=== PATIENT | male | born 1960 | race Caucasian/White ===

== ENCOUNTER 2017-05-07 15:11 | Emergency (ER) | payer OTHER ==
[~2017-05-07] VITALS: Ht 188 cm; Wt 113.4 kg
[2017-05-07 15:48] VITALS: BP 128/78
[2017-05-07] MEDS ORDERED: FLUORESCEIN OPHTH TEST STRIP. ONE (15:52)
[2017-05-07] MEDS ORDERED: TETRACAINE 0.5% OPHTH SOLUTION 4ML BOTTLE. ONE (15:53)
[2017-05-07] MEDS ORDERED: FLUORESCEIN OPHTH TEST STRIP. OS ONE (16:00)
[2017-05-07] MEDS ORDERED: TETRACAINE 0.5% OPHTH SOLUTION 4ML BOTTLE. OS ONE (16:00)
[2017-05-07] MEDS ORDERED: DIPHTH,PERTUSS(ACELL),TET TOX 0.5 ML DISP.SYRIN. VAX IM ONE (16:00)
--- NOTE | 2017-05-07 16:01 | PHYS DOC ---
Past Medical History Past Medical History: No Pertinent History Past Surgical History: Other Additional Past Surgical Histo: knee, shoulder Alcohol Use: Occasionally Drug Use: None Adult General Chief Complaint Chief Complaint: EYE PROBLEMS HPI HPI Patient is a 56 year old medical presents with left eye injury. 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 Patient denies any vision loss. Review of Systems Review of Systems Constitutional: Denies fever or chills [] Eyes: left eye injury Musculoskeletal: Denies back pain or joint pain [] Integument: Denies rash or skin lesions [] Neurologic: Denies headache, focal weakness or sensory changes [] Current Medications Current Medications Current Medications Medications (Trade) Dose Ordered Sig/Sybil Start Time Stop Time Status Last Admin Dose Admin Diphtheria/ Tetanus/Acell Pertussis (Boostrix) 0.5 ml ONCE ONCE 05/07/17 16:00 05/07/17 16:01 Fluorescein Sodium (Ful-Jaz) 1 strip STK-MED ONCE 05/07/17 15:52 05/07/17 15:53 DC Tetracaine HCl (Tetracaine) 40 drop STK-MED ONCE 05/07/17 15:53 05/07/17 15:54 DC Allergies Allergies Allergies Coded Allergies Type Severity Reaction Last Updated Verified codeine Allergy Unknown 05/07/17 Yes Physical Exam Physical Exam Constitutional: Well developed, well nourished, no acute distress, non-toxic appearance. [] HENT: Normocephalic, atraumatic, bilateral external ears normal, oropharynx moist, no oral exudates, nose normal. [] Eyes: PERRLA, EOMI, left medial subconjunctival hemorrhage with no drainage Skin: Warm, dry, no erythema, no rash. [] Back: No tenderness, no CVA tenderness. [] Extremities: No tenderness, no cyanosis, no clubbing, ROM intact, no edema. [] Neurologic: Alert and oriented X 3, normal motor function, normal sensory function, no focal deficits noted. [] Psychologic: Affect normal, judgement normal, mood normal. [] Current Patient Data Vital Signs Vital Signs Date Time Temp Pulse Resp B/P (MAP) Pulse Ox O2 Delivery O2 Flow Rate FiO2 05/07/17 15:48 98.7 87 16 95 Room Air 98.7 EKG EKG [] Radiology/Procedures Radiology/Procedures [] Course & Med Decision Making Course & Med Decision Making Pertinent Labs and Imaging studies reviewed. (See chart for details) Patient is in the ED with left eye injury. 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 He does have subconjunctival hemorrhage left medial eye. He was discharged with erythromycin eye ointment. Discharged with instructions to follow-up with the licensing specialist on Tuesday. Given tetanus in the ED. Discharged in stable condition. Dragon Disclaimer Dragon Disclaimer This electronic medical record was generated, in whole or in part, using a voice recognition dictation system. Departure Departure Impression: Primary Impression: Subconjunctival hemorrhage of left eye Disposition: HOME, SELF-CARE Condition: STABLE Referrals: NAI APPIAH MD (PCP) DHARMESH ROCHE MD Follow-up with the provided eye doctor by calling his office on Tuesday. Patient Instructions: Subconjunctival Hemorrhage-Brief Additional Instructions: You were seen with left conjunctiva hemorrhage from an eye injury. Use the prescribed antibiotic ointment as ordered. Follow-up with the provided licensing specialist by calling his office on Tuesday morning. Please come back to the emergency room at any point symptoms worsen. Scripts Erythromycin Base (Erythromycin) 1 Gm Oint...g. 1 APPLIC OP Q4HRS W/A, #1 MISC use for seven days Prov: PIEDAD HERNANDEZ APRN 05/07/17 PIEDAD HERNANDEZ APRN May 07, 2017 16:01
[2017-05-07] MEDS ORDERED: ERYT1OIN6 OP (16:09)
== END 2017-05-07 16:25 | disposition home or self-care (01) ==
LOC: ER 15:11
DX: H11.32 Conjunctival hemorrhage, left eye (principal); Z88.5 Allergy status to narcotic agent
CPT/HCPCS: 90471; 90715; 99283-25